=== PATIENT | male | born 1965 | race Caucasian/White ===

== ENCOUNTER → 2017-06-08 08:27 | Outpatient (CLI) | payer SELFPAY ==
[2017-06-08 10:03] LABS: Absolute Lymphocyte Count 3.63 X10^3/ul (0.83-4.51); Absolute Neutrophil Count 7.6 X10^3/uL (2.0-7.7); Basophil# 0.04 X10^3/uL; Basophil% 0.3 % (0-1); Eosinophil# 0.12 X10^3/uL; Hematocrit 45.4 % (40-54); Hemoglobin 15.3 g/dl (13.0-16.5); Lymphocyte # 3.63 X10^3/ul (4.0); Lymphocyte % 29.8 % (19-41); Mean Corp Hgb Conc 33.7 g/gl (32-36); Mean Corpuscular Hgb 33.5 pg (27.0-32.0); Mean Corpuscular Volume 99.3 fL (80-94); Mean Platelet Vol. 9.8 fl (6.2-12.0); Monocyte% 5.7 % (0-10); Neutrophil # 7.56 X10^3/uL (2.7-7.7); Neutrophil % 62.1 % (47-70); Platelet Count 163 K/mm3 (150-450); RBC Distribution Width CV 13.6 % (11.6-14.6); Red Blood Count 4.57 M/mm3 (4.6-6.2); White Blood Count 12.2 K/mm3 (4.4-11.0)
[2017-06-08 10:09] LABS: AST(SGOT) 43 U/L (15-37); Alanine Aminotransfer ALT/SGPT 47 U/L (16-61); Albumin, Serum 3.9 g/dL (3.2-5.0); Alkaline Phosphatase 105 U/L (45-117); Anion Gap 9 (5-15); BUN 14 mg/dL (7-18); BUN/Creat Ratio 15.6 RATIO (10-20); Calcium,Total 9.3 mg/dL (8.5-10.1); Chloride 94 mmol/L (98-107); EST Glomerular Filtration Rate 96 mL/min (>60); Est Glom Filt Rate - Afr Amer 116 mL/min (>60); Globulin 3.9 g/dL (2.2-4.2); Glucose 132 mg/dL (74-106); Potassium 4.4 mmol/L (3.5-5.1); Protein, Total 7.8 g/dL (6.4-8.2); Sodium Level 132 mmol/L (136-145)
[2017-06-08 10:11] LABS: POSITIVE COUNT NO; POSITIVE DIFFERENTIAL NO; POSITIVE MORPHOLOGY NO
== END ==
PROVIDERS: Family Provider Family Medicine; PCP Family Medicine; Visit Provider Family Medicine
DX: R74.8 Abnormal levels of other serum enzymes (principal)
CPT/HCPCS: 36415; 80053; 85025

== ENCOUNTER 2017-07-18 06:45 | Inpatient (IN) | payer SELFPAY ==
[2017-07-18 06:46] VITALS: BP 158/90; PULSE 120; RESP 15; TEMP 36.6; O2SAT 96; BMI 30.6
--- NOTE | 2017-07-18 07:06 | EKG12_ITS ---
Test Reason : ABD PAIN Blood Pressure : / mmHG Vent. Rate : 110 BPM Atrial Rate : 110 BPM P-R Int : 146 ms QRS Dur : 092 ms QT Int : 354 ms P-R-T Axes : 056 036 046 degrees QTc Int : 479 ms Sinus tachycardia Otherwise normal ECG Confirmed by BEULAH DELEON ([id number]), brands editor JOEL DELUCA ([id number] on 07/31/2017 5:57:12 PM Referred By: JESSICA Confirmed By:BEULAH DELEON
[2017-07-18] MEDS: Ondansetron 4 MG/2 ML Vial IV ×2 (07:22→17:15)
[2017-07-18] MEDS: 0.9% Normal Saline 1,000 ML 1000 ML IV ×2 (07:22→08:17)
[2017-07-18] MEDS: HYDROmorphone 1 MG/ML Syringe 0.5 MG IV (07:23)
[2017-07-18 07:28] LABS: Absolute Lymphocyte Count 2.31 X10^3/ul (0.83-4.51); Absolute Neutrophil Count 8.8 X10^3/uL (2.0-7.7); Basophil# 0.03 X10^3/uL; Basophil% 0.2 % (0-1); Eosinophil# 0.07 X10^3/uL; Eosinophils% 0.6 % (0-5); Hematocrit 47.8 % (40-54); Hemoglobin 16.8 g/dl (13.0-16.5); Lymphocyte # 2.31 X10^3/ul (4.0); Lymphocyte % 18.7 % (19-41); Mean Corp Hgb Conc 35.1 g/gl (32-36); Mean Corpuscular Hgb 34.3 pg (27.0-32.0); Mean Corpuscular Volume 97.6 fL (80-94); Mean Platelet Vol. 8.9 fl (6.2-12.0); Monocyte# 0.97 X10^3/uL; Monocyte% 7.9 % (0-10); Neutrophil # 8.84 X10^3/uL (2.7-7.7); Neutrophil % 71.6 % (47-70); Platelet Count 195 K/mm3 (150-450); RBC Distribution Width CV 13.4 % (11.6-14.6); RBC Distribution Width SD 47.2 fl (35.1-43.9); White Blood Count 12.3 K/mm3 (4.4-11.0)
[2017-07-18 07:31] LABS: POSITIVE COUNT NO; POSITIVE DIFFERENTIAL NO; POSITIVE MORPHOLOGY NO
[2017-07-18 07:36] LABS: AST(SGOT) 51 U/L (15-37); Alanine Aminotransfer ALT/SGPT 57 U/L (16-61); Albumin, Serum 4.2 g/dL (3.2-5.0); Alkaline Phosphatase 119 U/L (45-117); Anion Gap 14 (5-15); BUN 12 mg/dL (7-18); BUN/Creat Ratio 14.1 RATIO (10-20); Bilirubin, Direct 0.41 mg/dL (0.00-0.30); Calcium,Total 11.1 mg/dL (8.5-10.1); Chloride 92 mmol/L (98-107); Creatinine, Serum 0.85 mg/dL (0.70-1.30); EST Glomerular Filtration Rate 101 mL/min (>60); Est Glom Filt Rate - Afr Amer 122 mL/min (>60); Estimated Creatinine Clearance 101.71 ml/min; Globulin 4.4 g/dL (2.2-4.2); Glucose 152 mg/dL (74-106); Lipase 1230 U/L (73-393); Potassium 4.2 mmol/L (3.5-5.1); Protein, Total 8.6 g/dL (6.4-8.2); Sodium Level 134 mmol/L (136-145)
--- NOTE | 2017-07-18 08:09 | ED.DCSUM_ITS ---
- ER Visit Summary Date of Service: 07/18/17 Chief Complaint: Epigastric abdominal pain History of Present Illness: The patient is a 51 M reports a 3 day history of epigastric abdominal pain. He has had nausea and vomiting along with diarrhea. He denies fever or chills. Patient has drank alcohol in the past and states a few nights ago he did have a couple glasses of wine. He has never had pancreatitis. He denies any prior abdominal surgeries. Physical Examination: Vital signs are significant for heart rate of 120. Patient sitting upright in bed. He appears uncomfortable but is in no distress. Head neck examination reveals dry mucous membranes. Heart is tachycardic and regular. Lung sounds are clear. Abdomen is soft with focal tenderness in the epigastric area. He has active bowel sounds noted. There is no guarding or rebound. Test Results: EKG is sinus tach at 110 with no sign of acute ischemia. CBC was a white count 12.3 and hemoglobin concentrated at 16.8. Chemistry studies reveal a sodium of 134 and a glucose of 152. LFTs reveal a total bili of 1.20, direct bili of 0.41, AST 51. His lipase is elevated at 1230. Emergency Department Course and Treatment: Patient is been given IV fluid boluses along with Dilaudid and Zofran. On repeat evaluation he is resting more comfortably. He will be admitted for further treatment and care. Treatment Plan: [] Disposition: Admit Impression: Acute pancreatitis This note was generated with [employer] dictation software. It may contain incorrect words, spelling, and punctuation that were not noted in review of the chart prior to signing ED Disposition - Plan for ED Patient: Chief Complaint: Abd Pain Referrals: Zackary Wharton MD [Primary Care Provider] -
--- NOTE | 2017-07-18 08:16 | US_ITS ---
STUDY: ABDOMINAL ULTRASOUND - RIGHT UPPER QUADRANT REASON FOR VISIT: Male, 51 years old. 3 day history of epigastric pain. TECHNIQUE: Ultrasound evaluation of the right upper quadrant was performed with real-time and static harper-scale imaging. TECHNICAL QUALITY: Adequate. COMPARISON: Comparison is made with prior examination dated October 17, 2016. FINDINGS: Liver: The liver measures 18.0 cm. There is increased echogenicity consistent with fatty infiltration. The bile ducts are within normal limits. There is hepatic color flow. The direction of portal flow is hepatopetal. There is no demonstrated mass lesion. Gallbladder: Normal distended gallbladder. The gallbladder wall measures 2.9 mm. There is a negative sonographic Galaviz's sign. There is no pericholecystic fluid. There are no gallstones. Common Bile Duct (C.B.D.): The common bile duct measures 3.6 mm. Pancreas: Normal size of the head, body and tail of the pancreas. There is increased echogenicity of the pancreas. There is no demonstrated pancreatic mass or cyst. Right Kidney: Normal size of the right kidney. The right kidney measures 13.0 cm x 6.2 cm x 5.8 cm. Normal renal cortex. The right cortex measures 1.8 cm. There is no demonstrated renal mass or cyst. There is no right hydronephrosis. Findings suggestive of a 5 mm calculus in the right kidney. US/Gallbladder IMPRESSION: Fatty infiltration of the liver. Electronically Signed: Prabhakar Alexandra MD at 9:31 EDT Tel [phone], Service support ,
[2017-07-18] MEDS: HYDROmorphone 0.5 MG/0.5 ML SYRINGE IV (08:21)
[2017-07-18] MEDS: 0.9% Normal Saline 1,000 ML 150 ML IV ×3 (10:25→23:49)
[2017-07-18 10:29] VITALS: BP 140/84; PULSE 88; RESP 18; TEMP 36.6
[2017-07-18 10:46] VITALS: BMI 30.1
[2017-07-18 11:02] VITALS: BP 143/86; PULSE 110; RESP 20; TEMP 37.2; O2SAT 98
[2017-07-18] MEDS: Morphine 4 MG/ML Syringe IV ×3 (11:28→20:38)
[2017-07-18] MEDS: 0.9% NaCl Peripheral Flush Adult/Peds IV ×2 (11:30→15:47)
[2017-07-18 11:42] VITALS: BMI 30.1
[2017-07-18] MEDS: Tamsulosin HCl 0.4 MG Capsule PO (12:36)
[2017-07-18] MEDS: clonazePAM 0.5 MG Tablet PO (12:36)
[2017-07-18] MEDS: Enoxaparin 40 MG/0.4 ML Syringe SC (12:36)
--- NOTE | 2017-07-18 13:44 | PCM.HP.STD ---
Problem List (1) Pancreatitis Status: Acute (2) Hepatic steatosis Status: Chronic (3) Anxiety Status: Chronic (4) HTN (hypertension) Status: Chronic Qualifiers: History of Present Illness Date of Admission: 07/18/17 Chief Complaint: abdominal pain The patient is a 51 year old M presents with several days of epigastric abdominal pain. Also associated with nausea vomiting and diarrhea. Patient stated that couple days ago he had a couple glasses of wine but that was having some symptoms even before that. Patient states that he drinks alcohol infrequently. Patient presented to the hospital today as he felt that it would have been too busy over the weekend for this abdominal pain. In the emergency room, patient was found to have a lipase of 1230, patient's LFTs were slightly elevated as well. Patient had an ultrasound that showed no choledocholithiasis. Patient was admitted for further evaluation of his pancreatitis. Patient denies having any prior history of pancreatitis but he does endorse that he has had abdominal pain in the past which he is treated with alcohol. Patient does have a history of ascites any and anasarca which has improved greatly with diuretic therapy. Patient denies any history of cirrhosis though it has been documented that the patient to have alcoholic cirrhosis. Patient was seen in the hospital here in 2013 but has not seen any billet recorder in the interim. [] Past Medical History Past Medical History (Chronic Problems): Chronic Problems Hepatic steatosis (Chronic) Anxiety (Chronic) HTN (hypertension) (Chronic) Allergies No Known Allergies Allergy (Verified 07/18/17 06:46) Home Medications: Ambulatory Orders Medication Instructions Recorded Clonazepam [Klonopin] 0.5 mg PO DAILY PRN PRN 10/16/16 Furosemide [Lasix] 40 mg PO BIDLX 10/16/16 Multivitamin [Daily Multiple 1 tablet PO DAILY 10/16/16 Vitamin] Tamsulosin HCl [Flomax] 0.4 mg PO DAILY 10/16/16 Folic Acid 1 mg PO DAILY@0800 #30 tablet 10/22/16 Melatonin 3 mg PO QHS tablet 10/22/16 Spironolactone [Aldactone] 100 mg PO BID #60 tablet 10/22/16 Thiamine Hydrochloride [Vitamin B1] 100 mg PO DAILYCM #30 tablet 10/22/16 Surgical History: tonsillectomy Psychiatric History: Anxiety Smoking Status: Former smoker Tobacco Use: Non-smoker Alcohol: Occasional Drugs: None - *Family History Paternal History Items: Heart Disease Maternal History Items: No pertinent history Sibling History Items: No pertinent history Review of Systems Constitutional: Denies: Chills, Fever, Weight Change Eyes: Denies: Blurred vision, Double vision HEENT: Denies: Head Aches, Sinus Congestion, Sinus Drainage Cardiovascular: Denies: Chest Pain, Palpitations Respiratory: Denies: Cough, Shortness of breath at rest, Sputum production Gastrointestinal: Reports: Abdominal Pain, Diarrhea, Nausea, Vomiting Genitourinary: Denies: Dysuria Musculoskeletal: Denies: Joint Pain, Joint Tenderness Skin: Denies: Rash, Wounds Neurological: Denies: Numbness, Tingling, Focal weakness Psychiatric: Reports: Anxiety, Depression Hematologic/ Lymphatic: Denies: Easy Bruising, Easy Bleeding, Hx of blood clot VTE Information - Inpt Only VTE Present on Admission: No VTE Pharm Prophylaxis ordered?: Yes Patient Problems: Active and Suspected Problems Pancreatitis (Acute) - Physical Exam General: Alert, Cooperative, No apparent distress HEENT: Atraumatic, Normocephalic, - - No icterus Oral: Moist Mucosa, No Gingival or Mucosal Lesions/ Ulcerations Neck: No Nodes, Thyroid Normal Size and Texture Lungs: Clear to auscultation, Normal air movement, No rhonchi, No wheeze Cardiovascular: Regular rate, Regular Rhythm, Normal S1, Normal S2 Abdomen: Bowel Sounds Present, Soft, Non-Distended, No Hepato-splenomegaly, Tender - Right epigastric tenderness Extremities: No edema, No Calf Tenderness Skin: No rashes, - - Patient does have some rubor of his cheeks bilaterally. Psych/Mental Status: Normal Affect, Appropriate Vital Signs Temp Pulse Resp BP Pulse Ox 37.2 C 110 H 20 H 143/86 H 98 07/18/17 11:02 07/18/17 11:02 07/18/17 11:02 07/18/17 11:02 07/18/17 11:02 Oxygen Delivery Method Room Air Weight: 89.8 kg Body Mass Index (BMI) 30.1 Clinical Impression(s) from Imaging Studies Gallbladder Ultrasound 07/18/17 08:16 IMPRESSION: Fatty infiltration of the liver. Electronically Signed: Prabhakar Alexandra MD at 9:31 EDT Tel [phone], Service support , Assessment/Plan Active and Suspected Problems Pancreatitis (Acute) 1. Acute pancreatitis No obvious gallstones per the patient's history does not seem that could be alcohol induced though patient did endorse drinking alcohol this was occurring. Given patient's history is unclear if this was before after In the meantime, plan is for IV fluids, pain control and antiemetics. Depending on the patient's clinical course: If patient improves, would advance patient's diet and then encourage patient follow-up with gastroenterology. The patient declines and may need to consider reimaging, such as with a CAT scan or an MRCP. May need to consider also gastroenterology consultation. 2. Transaminitis LFTs are slightly elevated. No evidence of any choledocholithiasis that would cause this and clinically is no evidence of ascending cholangitis. Question of the patient actually was drinking more than just a couple drinks as he endorses. Previously his liver function tests had been pretty normal. 3. Hepatic steatosis Patient with noted fatty liver on ultrasound. Patient has had ascites as well as his lower extremity edema which is improved greatly since starting on diuretics I encouraged patient follow-up with gastroenterology to see if he does indeed have cirrhosis. Patient states that he has never had a liver biopsy. But given his past history of's ascites I would be very concerned that he may. 4. DVT prophylaxis with Lovenox Code Visit Inpatient E&M: 08859 Init Hosp L3
--- NOTE | 2017-07-18 13:52 | HP.PCM_ITS ---
Problem List (1) Pancreatitis Status: Acute (2) Hepatic steatosis Status: Chronic (3) Anxiety Status: Chronic (4) HTN (hypertension) Status: Chronic Qualifiers: History of Present Illness Date of Admission: 07/18/17 Chief Complaint: abdominal pain The patient is a 51 year old M presents with several days of epigastric abdominal pain. Also associated with nausea vomiting and diarrhea. Patient stated that couple days ago he had a couple glasses of wine but that was having some symptoms even before that. Patient states that he drinks alcohol infrequently. Patient presented to the hospital today as he felt that it would have been too busy over the weekend for this abdominal pain. In the emergency room, patient was found to have a lipase of 1230, patient's LFTs were slightly elevated as well. Patient had an ultrasound that showed no choledocholithiasis. Patient was admitted for further evaluation of his pancreatitis. Patient denies having any prior history of pancreatitis but he does endorse that he has had abdominal pain in the past which he is treated with alcohol. Patient does have a history of ascites any and anasarca which has improved greatly with diuretic therapy. Patient denies any history of cirrhosis though it has been documented that the patient to have alcoholic cirrhosis. 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 [] Past Medical History Past Medical History (Chronic Problems): Chronic Problems Hepatic steatosis (Chronic) Anxiety (Chronic) HTN (hypertension) (Chronic) Allergies No Known Allergies Allergy (Verified 07/18/17 06:46) Home Medications: Ambulatory Orders Medication Instructions Recorded Clonazepam [Klonopin] 0.5 mg PO DAILY PRN PRN 10/16/16 Furosemide [Lasix] 40 mg PO BIDLX 10/16/16 Multivitamin [Daily Multiple 1 tablet PO DAILY 10/16/16 Vitamin] Tamsulosin HCl [Flomax] 0.4 mg PO DAILY 10/16/16 Folic Acid 1 mg PO DAILY@0800 #30 tablet 10/22/16 Melatonin 3 mg PO QHS tablet 10/22/16 Spironolactone [Aldactone] 100 mg PO BID #60 tablet 10/22/16 Thiamine Hydrochloride [Vitamin B1] 100 mg PO DAILYCM #30 tablet 10/22/16 Surgical History: tonsillectomy Psychiatric History: Anxiety Smoking Status: Former smoker Tobacco Use: Non-smoker Alcohol: Occasional Drugs: None - *Family History Paternal History Items: Heart Disease Maternal History Items: No pertinent history Sibling History Items: No pertinent history Review of Systems Constitutional: Denies: Chills, Fever, Weight Change Eyes: Denies: Blurred vision, Double vision HEENT: Denies: Head Aches, Sinus Congestion, Sinus Drainage Cardiovascular: Denies: Chest Pain, Palpitations Respiratory: Denies: Cough, Shortness of breath at rest, Sputum production Gastrointestinal: Reports: Abdominal Pain, Diarrhea, Nausea, Vomiting Genitourinary: Denies: Dysuria Musculoskeletal: Denies: Joint Pain, Joint Tenderness Skin: Denies: Rash, Wounds Neurological: Denies: Numbness, Tingling, Focal weakness Psychiatric: Reports: Anxiety, Depression Hematologic/ Lymphatic: Denies: Easy Bruising, Easy Bleeding, Hx of blood clot VTE Information - Inpt Only VTE Present on Admission: No VTE Pharm Prophylaxis ordered?: Yes Patient Problems: Active and Suspected Problems Pancreatitis (Acute) - Physical Exam General: Alert, Cooperative, No apparent distress HEENT: Atraumatic, Normocephalic, - - No icterus Oral: Moist Mucosa, No Gingival or Mucosal Lesions/ Ulcerations Neck: No Nodes, Thyroid Normal Size and Texture Lungs: Clear to auscultation, Normal air movement, No rhonchi, No wheeze Cardiovascular: Regular rate, Regular Rhythm, Normal S1, Normal S2 Abdomen: Bowel Sounds Present, Soft, Non-Distended, No Hepato-splenomegaly, Tender - Right epigastric tenderness Extremities: No edema, No Calf Tenderness Skin: No rashes, - - Patient does have some rubor of his cheeks bilaterally. Psych/Mental Status: Normal Affect, Appropriate Vital Signs Temp Pulse Resp BP Pulse Ox 37.2 C 110 H 20 H 143/86 H 98 07/18/17 11:02 07/18/17 11:02 07/18/17 11:02 07/18/17 11:02 07/18/17 11:02 Oxygen Delivery Method Room Air Weight: 89.8 kg Body Mass Index (BMI) 30.1 Clinical Impression(s) from Imaging Studies Gallbladder Ultrasound 07/18/17 08:16 IMPRESSION: Fatty infiltration of the liver. Electronically Signed: Prabhakar Alexandra MD at 9:31 EDT Tel [phone], Service support , Assessment/Plan Active and Suspected Problems Pancreatitis (Acute) 1. Acute pancreatitis * No obvious gallstones per the patient's history does not seem that could be alcohol induced though patient did endorse drinking alcohol this was occurring. Given patient's history is unclear if this was before after * In the meantime, plan is for IV fluids, pain control and antiemetics. * Depending on the patient's clinical course: If patient improves, would advance patient's diet and then encourage patient follow-up with gastroenterology. The patient declines and may need to consider reimaging, such as with a CAT scan or an MRCP. May need to consider also gastroenterology consultation. 2. Transaminitis * LFTs are slightly elevated. No evidence of any choledocholithiasis that would cause this and clinically is no evidence of ascending cholangitis. * Question of the patient actually was drinking more than just a couple drinks as he endorses. * Previously his liver function tests had been pretty normal. 3. Hepatic steatosis * Patient with noted fatty liver on ultrasound. Patient has had ascites as well as his lower extremity edema which is improved greatly since starting on diuretics * I encouraged patient follow-up with gastroenterology to see if he does indeed have cirrhosis. Patient states that he has never had a liver biopsy. But given his past history of's ascites I would be very concerned that he may. 4. DVT prophylaxis with Lovenox Code Visit Inpatient E&M: 51866 Init Hosp L3
[2017-07-18 17:10] VITALS: BP 136/81; PULSE 108; RESP 18; TEMP 36.6; O2SAT 96
[2017-07-18] MEDS: Thiamine Hydrochloride 100 MG Tablet PO (17:12)
[2017-07-18 20:28] VITALS: BP 133/77; PULSE 101; RESP 24; TEMP 36.8; O2SAT 94
[2017-07-18 20:47] VITALS: PULSE 98; O2SAT 93
[2017-07-18] MEDS: MELATONIN 3 MG TABLET PO (21:42)
[2017-07-19 00:55] VITALS: BP 121/73; PULSE 100; RESP 20; TEMP 37; O2SAT 94
[2017-07-19] MEDS: Morphine 4 MG/ML Syringe IV ×5 (01:14→22:02)
[2017-07-19 05:42] VITALS: BP 123/81; PULSE 95; RESP 20; TEMP 37.1; O2SAT 98
[2017-07-19] MEDS: 0.9% Normal Saline 1,000 ML 150 ML IV ×3 (06:15→21:10)
[2017-07-19 06:23] LABS: Absolute Lymphocyte Count 3.14 X10^3/ul (0.83-4.51); Absolute Neutrophil Count 7.5 X10^3/uL (2.0-7.7); Basophil# 0.07 X10^3/uL; Basophil% 0.6 % (0-1); Eosinophil# 0.36 X10^3/uL; Hematocrit 44.7 % (40-54); Hemoglobin 15.3 g/dl (13.0-16.5); Lymphocyte # 3.14 X10^3/ul (4.0); Lymphocyte % 26.3 % (19-41); Mean Corp Hgb Conc 34.2 g/gl (32-36); Mean Corpuscular Hgb 34.5 pg (27.0-32.0); Mean Corpuscular Volume 100.9 fL (80-94); Mean Platelet Vol. 9.1 fl (6.2-12.0); Monocyte# 0.77 X10^3/uL; Monocyte% 6.4 % (0-10); Neutrophil # 7.49 X10^3/uL (2.7-7.7); Neutrophil % 62.8 % (47-70); Platelet Count 193 K/mm3 (150-450); RBC Distribution Width CV 13.3 % (11.6-14.6); RBC Distribution Width SD 48.6 fl (35.1-43.9); Red Blood Count 4.43 M/mm3 (4.6-6.2); White Blood Count 11.9 K/mm3 (4.4-11.0)
[2017-07-19 06:24] LABS: POSITIVE COUNT NO; POSITIVE DIFFERENTIAL NO; POSITIVE MORPHOLOGY NO
[2017-07-19 06:47] LABS: ALB/GLOB Ratio 0.9 RATIO (0.9-2.4); AST(SGOT) 41 U/L (15-37); Alanine Aminotransfer ALT/SGPT 44 U/L (16-61); Albumin, Serum 3.5 g/dL (3.2-5.0); Alkaline Phosphatase 104 U/L (45-117); Anion Gap 9 (5-15); BUN 10 mg/dL (7-18); BUN/Creat Ratio 13.5 RATIO (10-20); Calcium,Total 8.6 mg/dL (8.5-10.1); Chloride 98 mmol/L (98-107); Creatinine, Serum 0.74 mg/dL (0.70-1.30); EST Glomerular Filtration Rate 119 mL/min (>60); Est Glom Filt Rate - Afr Amer 144 mL/min (>60); Estimated Creatinine Clearance 116.82 ml/min; Globulin 4.1 g/dL (2.2-4.2); Glucose 111 mg/dL (74-106); Lipase 412 U/L (73-393); Potassium 3.6 mmol/L (3.5-5.1); Protein, Total 7.6 g/dL (6.4-8.2); Sodium Level 137 mmol/L (136-145)
[2017-07-19] MEDS: Folic Acid 1 MG Tablet PO (08:31)
[2017-07-19] MEDS: Enoxaparin 40 MG/0.4 ML Syringe SC (08:31)
[2017-07-19] MEDS: Tamsulosin HCl 0.4 MG Capsule PO (08:31)
--- NOTE | 2017-07-19 09:09 | SLEEP ---
Seen patient and educated him on the importance of screening/testing for sleep disordered breathing. He verbalized understanding and did not have any questions. I left patient with a brochure of information.
--- NOTE | 2017-07-19 10:08 | CASEMGMT ---
SW spoke w/pt in room, in regard to self pay status, mental health, alcohol use. Pt states he did meet w/someone from our financial dept this morning and completed a Medicaid application. Pt states lives alone, is not working, is fully independent w/all ADL's. Pt's PCP is Dr. Wharton and he gets scripts from [facility]. He normally just pays for his medications out of pocket as they are not expensive. Pt states he cares for his mother, and was caring for his father before he . Pt states their goal has been to keep his mother out of a care home, and so far he has been able to do so. SW gave pt information for [facility] assist, 211, prescription assist, [employer]. Pt states does not have issues w/transport or food. SW spoke w/pt about mental health, pt states his sister thinks he needs to speak w/someone, and his PCP has put him on medications. Pt said he had bad side effects from one and has been prescribed another, has been hesitant to try the new med. Pt states he is taking clonazepam and that is helping. SW gave pt a list of counseling agencies in the area, let him know that [facility] does have sliding scale fees since he does not yet have insurance. SW also asked pt about his alcohol consumption, pt denies that this is an issue. No further needs at this time, SW gave pt resources list of counseling agencies and resources for self pay status. SW remains available for any additional needs. RICCARDO Mosher, ANALYTICAL CLERK
[2017-07-19 10:31] VITALS: BP 126/83; PULSE 91; RESP 18; TEMP 37; O2SAT 94
[2017-07-19] MEDS: 0.9% NaCl Peripheral Flush Adult/Peds IV (10:40)
[2017-07-19] MEDS: Thiamine Hydrochloride 100 MG Tablet PO (11:21)
[2017-07-19] MEDS: Magnesium Hydroxide 30 ML UDC PO (14:24)
--- NOTE | 2017-07-19 15:12 | PN_ITS ---
Patient Problems: Active and Suspected Problems Pancreatitis (Acute) Subjective: had some worsening abdominal pain after eating. pt endorses that he ate more than he should. Vitals/I&O's: Vital Signs Temp Pulse Resp BP Pulse Ox 37.0 C 91 18 126/83 H 94 07/19/17 10:31 07/19/17 10:31 07/19/17 10:31 07/19/17 10:31 07/19/17 10:31 Oxygen Delivery Method Room Air Weight: 89.8 kg Body Mass Index (BMI) 30.1 Intake and Output for Last 24 Hours 07/17/17 07/18/17 07/19/17 23:59 23:59 23:59 Intake Total 2470 / 2470 993 / 993 Output Total 1375 / 1375 2400 / 2400 Balance 1095 / 1095 -1407 / -1407 General: Alert, Cooperative, No apparent distress HEENT: Atraumatic, Normocephalic Neck: No Nodes, Thyroid Normal Size and Texture Lungs: Clear to auscultation, Normal air movement, No rhonchi, No wheeze Cardiovascular: Regular rate, Regular Rhythm, Normal S1, Normal S2 Abdomen: Bowel Sounds Present, Soft, Non Tender, Non-Distended, No Hepato- splenomegaly Extremities: No edema, No Calf Tenderness Laboratory Results 07/19/17 05:34: WBC 11.9 H, RBC 4.43 L, Hgb 15.3, Hct 44.7, MCV 100.9 H, MCH 34.5 H, MCHC 34.2, RDW 13.3, RDW Differential 48.6 H, Plt Count 193, MPV 9.1, Immature Gran % (Auto) 0.900, Neut % (Auto) 62.8, Lymph % (Auto) 26.3, [place] % ( Auto) 6.4, Eos % (Auto) 3.0, Baso % (Auto) 0.6, Absolute Neuts (auto) 7.5, Absolute Lymphs (auto) 3.14, Total Counted Not Reportable 07/19/17 05:34: Sodium 137, Potassium 3.6, Chloride 98, Carbon Dioxide 30.0, Anion Gap 9, BUN 10, Creatinine 0.74, Estim Creat Clear Calc 116.82, Est GFR ( MDRD) Af Amer 144, Est GFR (MDRD) Non-Af 119, BUN/Creatinine Ratio 13.5, Glucose 111 H, Calcium 8.6, Total Bilirubin 1.10 H, AST 41 H, ALT 44, Alkaline Phosphatase 104, Total Protein 7.6, Albumin 3.5, Globulin 4.1, Albumin/Globulin Ratio 0.9, Lipase 412 H Current Medications Clonazepam (Klonopin) 0.5 mg PO DAILY PRN PRN PRN Reason: STRESS Last Admin: 07/18/17 12:36 Dose: 0.5 mg Enoxaparin Sodium (Lovenox) 40 mg SC DAILY@1000 [facility] Last Admin: 07/19/17 08:31 Dose: 40 mg Folic Acid (Folic Acid) 1 mg PO DAILY@0800 [facility] Last Admin: 07/19/17 08:31 Dose: 1 mg Sodium Chloride () 1,000 mls @ 150 mls/hr IV .[id number] [facility] Last Admin: 07/19/17 14:21 Dose: 150 mls/hr Magnesium Hydroxide (Milk Of Magnesia) 30 ml PO DAILY PRN PRN PRN Reason: Constipation Last Admin: 07/19/17 14:24 Dose: 30 ml Melatonin (Melatonin) 3 mg PO QHS [facility] Last Admin: 07/18/17 21:42 Dose: 3 mg Morphine Sulfate () 2 - 4 mg IV Q4H PRN PRN PRN Reason: MOD-SEVERE PAIN (4-10/10) Morphine Sulfate () 2 - 4 mg IV Q4H PRN PRN PRN Reason: MOD-SEVERE PAIN (4-10/10) Last Admin: 07/19/17 10:40 Dose: 4 mg Ondansetron HCl (Zofran) 4 mg IV Q8H PRN PRN PRN Reason: NAUSEA Last Admin: 07/18/17 17:15 Dose: 4 mg Sodium Chloride () 5 - 30 ml IV UD PRN PRN Reason: SALINE FLUSH Last Admin: 07/19/17 10:40 Dose: 10 ml Tamsulosin HCl (Flomax) 0.4 mg PO DAILY@0830 [facility] Last Admin: 07/19/17 08:31 Dose: 0.4 mg Thiamine HCl ([facility]itamin B1) [facility] Last Admin: 07/19/17 11:21 Dose: 100 mg Medical Necessity - Tobacco Use Smoking Status: Former smoker Tobacco Use: Non-smoker Assessment/Plan All Active Problems Pancreatitis (Acute) Hyponatremia (Acute) Severe sepsis with acute organ dysfunction (Acute) Hepatitis (Acute) Anasarca (Acute) Chest pain (Acute) 1. Acute pancreatitis * No obvious gallstones per the patient's history does not seem that could be alcohol induced though patient did endorse drinking alcohol this was occurring. Given patient's history is unclear if this was before after * In the meantime, plan is for IV fluids, pain control and antiemetics. * Depending on the patient's clinical course: If patient improves, would advance patient's diet and then encourage patient follow-up with gastroenterology. The patient declines and may need to consider reimaging, such as with a CAT scan or an MRCP. May need to consider also gastroenterology consultation. * worse after he ate than his abdominal pain did get worse. * Will continue with current management for now. * Continue with bland diet for now. 2. Transaminitis * LFTs are slightly elevated. No evidence of any choledocholithiasis that would cause this and clinically is no evidence of ascending cholangitis. * Question of the patient actually was drinking more than just a couple drinks as he endorses. * Previously his liver function tests had been pretty normal. * improved. 3. Hepatic steatosis * Patient with noted fatty liver on ultrasound. Patient has had ascites as well as his lower extremity edema which is improved greatly since starting on diuretics * I encouraged patient follow-up with gastroenterology to see if he does indeed have cirrhosis. Patient states that he has never had a liver biopsy. But given his past history of's ascites I would be very concerned that he may. 4. DVT prophylaxis with Lovenox Code Visit Inpatient E&M: 32154 Subs Hosp L2
[2017-07-19 15:30] VITALS: BP 142/90; PULSE 90; RESP 14; TEMP 36.8; O2SAT 95
[2017-07-19] MEDS: clonazePAM 0.5 MG Tablet PO (18:13)
[2017-07-19] MEDS: MELATONIN 3 MG TABLET PO (21:10)
[2017-07-19 21:30] VITALS: BP 124/80; PULSE 90; RESP 18; TEMP 37.1; O2SAT 96
[2017-07-20 03:30] VITALS: BP 123/71; PULSE 83; RESP 18; TEMP 36.8; O2SAT 93
[2017-07-20] MEDS: 0.9% Normal Saline 1,000 ML 150 ML IV (03:32)
[2017-07-20 06:08] LABS: Absolute Lymphocyte Count 2.48 X10^3/ul (0.83-4.51); Absolute Neutrophil Count 7.6 X10^3/uL (2.0-7.7); Basophil# 0.03 X10^3/uL; Basophil% 0.3 % (0-1); Eosinophil# 0.27 X10^3/uL; Eosinophils% 2.5 % (0-5); Hemoglobin 14.5 g/dl (13.0-16.5); Lymphocyte # 2.48 X10^3/ul (4.0); Lymphocyte % 22.6 % (19-41); Mean Corpuscular Hgb 33.2 pg (27.0-32.0); Mean Corpuscular Volume 100.7 fL (80-94); Monocyte# 0.59 X10^3/uL; Monocyte% 5.4 % (0-10); Neutrophil # 7.56 X10^3/uL (2.7-7.7); Neutrophil % 68.7 % (47-70); Platelet Count 167 K/mm3 (150-450); RBC Distribution Width CV 13.3 % (11.6-14.6); RBC Distribution Width SD 49.4 fl (35.1-43.9); Red Blood Count 4.37 M/mm3 (4.6-6.2)
[2017-07-20 06:29] LABS: ALB/GLOB Ratio 0.8 RATIO (0.9-2.4); AST(SGOT) 43 U/L (15-37); Alanine Aminotransfer ALT/SGPT 40 U/L (16-61); Albumin, Serum 3.3 g/dL (3.2-5.0); Alkaline Phosphatase 99 U/L (45-117); Anion Gap 9 (5-15); BUN 9 mg/dL (7-18); BUN/Creat Ratio 14.6 RATIO (10-20); Calcium,Total 8.9 mg/dL (8.5-10.1); Chloride 102 mmol/L (98-107); Creatinine, Serum 0.62 mg/dL (0.70-1.30); EST Glomerular Filtration Rate 147 mL/min (>60); Est Glom Filt Rate - Afr Amer 178 mL/min (>60); Estimated Creatinine Clearance 139.44 ml/min; Globulin 3.9 g/dL (2.2-4.2); Glucose 110 mg/dL (74-106); Lipase 233 U/L (73-393); Potassium 3.6 mmol/L (3.5-5.1); Protein, Total 7.2 g/dL (6.4-8.2); Sodium Level 137 mmol/L (136-145)
[2017-07-20 06:35] LABS: POSITIVE COUNT NO; POSITIVE DIFFERENTIAL NO; POSITIVE MORPHOLOGY NO
[2017-07-20 08:20] VITALS: BP 114/78; PULSE 87; RESP 16; TEMP 37; O2SAT 94
--- NOTE | 2017-07-20 08:56 | PCM.PN.HOSP ---
Patient Problems: Active and Suspected Problems Pancreatitis (Acute) Subjective: Feeling better. Tolerating diet. Vitals/I&O's: Vital Signs Temp Pulse Resp BP Pulse Ox 36.8 C 83 18 123/71 H 93 07/20/17 03:30 07/20/17 03:30 07/20/17 03:30 07/20/17 03:30 07/20/17 03:30 Oxygen Delivery Method Room Air Weight: 89.8 kg Body Mass Index (BMI) 30.1 Intake and Output for Last 24 Hours 07/18/17 07/19/17 07/20/17 23:59 23:59 23:59 Intake Total 2470 / 2470 4036 / 4036 1099 / 1099 Output Total 1375 / 1375 4150 / 4150 900 / 900 Balance 1095 / 1095 -114 / -114 199 / 199 General: Alert, Cooperative, No apparent distress HEENT: Atraumatic, Normocephalic Neck: No Nodes, Thyroid Normal Size and Texture Lungs: Clear to auscultation, Normal air movement, No rhonchi, No wheeze Cardiovascular: Regular rate, Regular Rhythm, Normal S1, Normal S2 Abdomen: Bowel Sounds Present, Soft, Non Tender, Non-Distended, No Hepato-splenomegaly Psych/Mental Status: Normal Affect, Appropriate Laboratory Results 07/20/17 05:45: WBC 11.0, RBC 4.37 L, Hgb 14.5, Hct 44.0, MCV 100.7 H, MCH 33.2 H, MCHC 33.0, RDW 13.3, RDW Differential 49.4 H, Plt Count 167, MPV 9.0, Immature Gran % (Auto) 0.500, Neut % (Auto) 68.7, Lymph % (Auto) 22.6, [place] % (Auto) 5.4, Eos % (Auto) 2.5, Baso % (Auto) 0.3, Absolute Neuts (auto) 7.6, Absolute Lymphs (auto) 2.48, Total Counted Not Reportable 07/20/17 05:45: Sodium 137, Potassium 3.6, Chloride 102, Carbon Dioxide 26.0, Anion Gap 9, BUN 9, Creatinine 0.62 L, Estim Creat Clear Calc 139.44, Est GFR (MDRD) Af Amer 178, Est GFR (MDRD) Non-Af 147, BUN/Creatinine Ratio 14.6, Glucose 110 H, Calcium 8.9, Total Bilirubin 1.10 H, AST 43 H, ALT 40, Alkaline Phosphatase 99, Total Protein 7.2, Albumin 3.3, Globulin 3.9, Albumin/Globulin Ratio 0.8 L, Lipase 233 Current Medications Clonazepam (Klonopin) 0.5 mg PO DAILY PRN PRN PRN Reason: STRESS Last Admin: 07/19/17 18:13 Dose: 0.5 mg Enoxaparin Sodium (Lovenox) 40 mg SC DAILY@1000 [facility] Last Admin: 07/19/17 08:31 Dose: 40 mg Folic Acid (Folic Acid) 1 mg PO DAILY@0800 [facility] Last Admin: 07/19/17 08:31 Dose: 1 mg Sodium Chloride () 1,000 mls @ 150 mls/hr IV .Q6H40M [facility] Last Admin: 07/20/17 03:32 Dose: 150 mls/hr Magnesium Hydroxide (Milk Of Magnesia) 30 ml PO DAILY PRN PRN PRN Reason: Constipation Last Admin: 07/19/17 14:24 Dose: 30 ml Melatonin (Melatonin) 3 mg PO QHS [facility] Last Admin: 07/19/17 21:10 Dose: 3 mg Morphine Sulfate () 2 - 4 mg IV Q4H PRN PRN PRN Reason: MOD-SEVERE PAIN (4-10/10) Morphine Sulfate () 2 - 4 mg IV Q4H PRN PRN PRN Reason: MOD-SEVERE PAIN (4-10/10) Last Admin: 07/19/17 22:02 Dose: 4 mg Ondansetron HCl (Zofran) 4 mg IV Q8H PRN PRN PRN Reason: NAUSEA Last Admin: 07/18/17 17:15 Dose: 4 mg Sodium Chloride () 5 - 30 ml IV UD PRN PRN Reason: SALINE FLUSH Last Admin: 07/19/17 10:40 Dose: 10 ml Tamsulosin HCl (Flomax) 0.4 mg PO DAILY@0830 [facility] Last Admin: 07/19/17 08:31 Dose: 0.4 mg [facility]) [facility] Last Admin: 07/19/17 11:21 Dose: 100 mg Medical Necessity - Tobacco Use Smoking Status: Former smoker Tobacco Use: Non-smoker Assessment/Plan All Active Problems Pancreatitis (Acute) Hyponatremia (Acute) Severe sepsis with acute organ dysfunction (Acute) Hepatitis (Acute) Anasarca (Acute) Chest pain (Acute) 1. Acute pancreatitis No obvious gallstones per the patient's history does not seem that could be alcohol induced though patient did endorse drinking alcohol this was occurring. Given patient's history is unclear if this was before after Improved today. Possibly could be related with the alcohol that he consumed in the days prior. I have advised patient to discontinue alcohol altogether. 2. Transaminitis LFTs are slightly elevated. No evidence of any choledocholithiasis that would cause this and clinically is no evidence of ascending cholangitis. Question of the patient actually was drinking more than just a couple drinks as he endorses. Previously his liver function tests had been pretty normal. improved, but bilirubin is slightly still elevated. Patient does have hepatic steatosis on ultrasound and previous imaging. I recommend patient follow-up with his foreign exchange clerk, Dr. Laughlin, for further evaluation and monitoring of his liver issues but also the fact that he has had pancreatitis as well. 3. Hepatic steatosis Patient with noted fatty liver on ultrasound. Patient has had ascites as well as his lower extremity edema which is improved greatly since starting on diuretics I encouraged patient follow-up with gastroenterology to see if he does indeed have cirrhosis. Patient states that he has never had a liver biopsy. But given his past history of's ascites I would be very concerned that he may. 4. DVT prophylaxis with Lovenox
--- NOTE | 2017-07-20 09:06 | PCM.DC ---
- Discharge Diagnoses Current Active Problems: Current Active and Chronic Problems Pancreatitis (Acute) You will use the following diet at home:: Cardiac, Fluid restricted (specify 2000 mls, 1500 mls) - 2 liters/day Your food should be the consistency of: Regular Your liquids should be the consistency of: Regular/Thin Discharge Activity: Return to Normal Activity Call your doctor if you observe: Fever of 101 or Higher, - - worsening abdominal pain. Allergies/Adverse Reactions: Allergies No Known Allergies Allergy (Verified 07/18/17 06:46) Medications to take at Discharge Clonazepam [Klonopin] 0.5 mg PO DAILY PRN PRN 10/16/16 Furosemide [Lasix] 40 mg PO BIDLX 10/16/16 Multivitamin [Daily Multiple Vitamin] 1 tablet PO DAILY 10/16/16 Tamsulosin HCl [Flomax] 0.4 mg PO DAILY 10/16/16 Folic Acid 1 mg PO DAILY@0800 #30 tablet 10/22/16 Melatonin 3 mg PO QHS tablet 10/22/16 Spironolactone [Aldactone] 100 mg PO BID #60 tablet 10/22/16 Thiamine Hydrochloride [Vitamin B1] 100 mg PO DAILYCM #30 tablet 10/22/16 Ondansetron HCl [Zofran] 8 mg PO TID PRN #15 tab 07/20/17 Oxycodone [Oxyir] 5 mg PO Q8H PRN 3 Days #6 tablet 07/20/17 The following prescriptions were given: Oxycodone [Oxyir] 5 mg PO Q8H PRN 3 Days #6 tablet PRN Reason: Severe Pain (6-10/10) Ondansetron HCl [Zofran] 8 mg PO TID PRN #15 tab PRN Reason: nausea vomiting. Primary Care Physician: Zackary Wharton MD [Primary Care Provider] - Within 2 Weeks Please Follow Up With: Tommie Laughlin MD When: 1-2 months Proposed Discharge Date: 07/20/17
[2017-07-20] MEDS: Tamsulosin HCl 0.4 MG Capsule PO (09:10)
[2017-07-20] MEDS: Folic Acid 1 MG Tablet PO (09:10)
[2017-07-20] MEDS: Thiamine Hydrochloride 100 MG Tablet PO (09:10)
--- NOTE | 2017-07-20 09:10 | DS.PCM_ITS ---
Discharge Date and Diagnosis - Problem List Patient Problems: Active and Suspected Problems Pancreatitis (Acute) Date of Admission: 07/18/17 Date of Discharge: 07/20/17 - Primary Discharge Diagnosis Active and Suspected Problems Pancreatitis (Acute) - Secondary Discharge Diagnosis Chronic Problems Hepatic steatosis (Chronic) Anxiety (Chronic) HTN (hypertension) (Chronic) Hospital Course and Treatment Imaging Results: Clinical Impression(s) from Imaging Studies Gallbladder Ultrasound 07/18/17 08:16 IMPRESSION: Fatty infiltration of the liver. Electronically Signed: Prabhakar Alexandra MD at 9:31 EDT Tel [phone], Service support , Operations: None Procedures: None Summary of Care Provided: The patient is a 51 year old M with abdominal pain and found to have pancreatitis. 1. Acute pancreatitis * No obvious gallstones per the patient's history does not seem that could be alcohol induced though patient did endorse drinking alcohol this was occurring. Given patient's history is unclear if this was before after * Improved today. Possibly could be related with the alcohol that he consumed in the days prior. I have advised patient to discontinue alcohol altogether. 2. Transaminitis * LFTs are slightly elevated. No evidence of any choledocholithiasis that would cause this and clinically is no evidence of ascending cholangitis. * Question of the patient actually was drinking more than just a couple drinks as he endorses. * Previously his liver function tests had been pretty normal. * improved, but bilirubin is slightly still elevated. Patient does have hepatic steatosis on ultrasound and previous imaging. * I recommend patient follow-up with his back winder, Dr. Laughlin, for further evaluation and monitoring of his liver issues but also the fact that he has had pancreatitis as well. 3. Hepatic steatosis * Patient with noted fatty liver on ultrasound. Patient has had ascites as well as his lower extremity edema which is improved greatly since starting on diuretics * I encouraged patient follow-up with gastroenterology to see if he does indeed have cirrhosis. Patient states that he has never had a liver biopsy. But given his past history of's ascites I would be very concerned that he may. [] Discharge Diet: Low fat/ Low Cholesterol, 8 Cup Fluid Restriciton, 2000 mg Sodium Diet Discharge Activity: Return to Normal Activity Call your doctor if you observe: Fever of 101 or Higher, - - worsening abdominal pain. Home Medications: Medications to take at Discharge Clonazepam [Klonopin] 0.5 mg PO DAILY PRN PRN 10/16/16 Furosemide [Lasix] 40 mg PO BIDLX 10/16/16 Multivitamin [Daily Multiple Vitamin] 1 tablet PO DAILY 10/16/16 Tamsulosin HCl [Flomax] 0.4 mg PO DAILY 10/16/16 Folic Acid 1 mg PO DAILY@0800 #30 tablet 10/22/16 Melatonin 3 mg PO QHS tablet 10/22/16 Spironolactone [Aldactone] 100 mg PO BID #60 tablet 10/22/16 Thiamine Hydrochloride [Vitamin B1] 100 mg PO DAILYCM #30 tablet 10/22/16 Ondansetron HCl [Zofran] 8 mg PO TID PRN #15 tab 07/20/17 Oxycodone [Oxyir] 5 mg PO Q8H PRN 3 Days #6 tablet 07/20/17 Following Prescrptions Were Given to Patient: Oxycodone [Oxyir] 5 mg PO Q8H PRN 3 Days #6 tablet PRN Reason: Severe Pain (6-10/10) Ondansetron HCl [Zofran] 8 mg PO TID PRN #15 tab PRN Reason: nausea vomiting. Primary Care Physician: Zackary Wharton MD [Primary Care Provider] - Within 2 Weeks Please Follow Up With: Tommie Laughlin MD When: 1-2 months Disposition: Home Minutes spent on discharge:: 32 Patient Condition:: Good Medical Necessity - Tobacco Use Smoking Status: Former smoker Tobacco Use: Non-smoker Meaningful Use Info Meaningful Use Diagnoses (Choose all that apply): None applicable Code Visit Inpatient E&M: 30126 Disch Hosp
[2017-07-20] MEDS: clonazePAM 0.5 MG Tablet PO (09:15)
== END 2017-07-20 10:30 | disposition home or self-care (01) | DRG 439 ==
LOC: ED 07:46 → MS2 10:13
PROVIDERS: Emergency Provider Emergency Medicine; Family Provider Family Medicine; PCP Family Medicine
DX: K85.90 Acute pancreatitis without necrosis or infection, unspecified (principal); E87.1 Hypo-osmolality and hyponatremia; K76.0 Fatty (change of) liver, not elsewhere classified; F41.9 Anxiety disorder, unspecified; I10 Essential (primary) hypertension; Z87.891 Personal history of nicotine dependence
CPT/HCPCS: 36415; 76705; 80048; 80053; 80076; 83690; 85025; 93005; 97802; 99285; 99406; J7030; A4216; J2405

== ENCOUNTER → 2017-10-30 10:42 | Outpatient (CLI) | payer SELFPAY ==
[2017-10-30 13:07] LABS: Hemoglobin A1c 5.6 % (4.2-6.3)
[2017-10-30 13:20] LABS: AST(SGOT) 44 U/L (15-37); Alanine Aminotransfer ALT/SGPT 46 U/L (16-61); Alkaline Phosphatase 114 U/L (45-117); Anion Gap 14 (5-15); BUN 12 mg/dL (7-18); BUN/Creat Ratio 13.7 RATIO (10-20); Calcium,Total 9.5 mg/dL (8.5-10.1); Chloride 95 mmol/L (98-107); Creatinine, Serum 0.87 mg/dL (0.70-1.30); EST Glomerular Filtration Rate 98 mL/min (>60); Est Glom Filt Rate - Afr Amer 119 mL/min (>60); Globulin 4.2 g/dL (2.2-4.2); Glucose 116 mg/dL (74-106); PSA,Total - Annual Screen 0.36 ng/mL (0.00-4.00); Potassium 4.1 mmol/L (3.5-5.1); Protein, Total 8.2 g/dL (6.4-8.2); Sodium Level 136 mmol/L (136-145)
[2017-10-30 13:28] LABS: Hematocrit 44.7 % (40-54); Hemoglobin 15.3 g/dl (13.0-16.5); Mean Corp Hgb Conc 34.2 g/gl (32-36); Mean Corpuscular Volume 96.3 fL (80-94); Platelet Count 219 K/mm3 (150-450); RBC Distribution Width CV 13.4 % (11.6-14.6); RBC Distribution Width SD 46.2 fl (35.1-43.9); Red Blood Count 4.64 M/mm3 (4.6-6.2)
[2017-10-30 13:29] LABS: Absolute Neutrophil Count 8.3 X10^3/uL (2.0-7.7); Basophil# 0.07 X10^3/uL; Basophil% 0.6 % (0-1); Eosinophil# 0.04 X10^3/uL; Eosinophils% 0.3 % (0-5); Lymphocyte % 22.4 % (19-41); Mean Platelet Vol. 9.7 fl (6.2-12.0); Monocyte# 0.82 X10^3/uL; Monocyte% 6.8 % (0-10); Neutrophil # 8.33 X10^3/uL (2.7-7.7); Neutrophil % 69.2 % (47-70); POSITIVE COUNT NO; POSITIVE DIFFERENTIAL NO; POSITIVE MORPHOLOGY NO
== END ==
PROVIDERS: Family Provider Family Medicine; PCP Family Medicine; Visit Provider Family Medicine
DX: I10 Essential (primary) hypertension (principal); E66.9 Obesity, unspecified; F52.21 Male erectile disorder; Z12.5 Encounter for screening for malignant neoplasm of prostate
CPT/HCPCS: 36415; 80053; 83036; 84153; 85025; G0103

== ENCOUNTER 2018-03-23 12:34 | Emergency (ER) | payer SELFPAY ==
[2018-03-23 12:35] VITALS: BP 180/87; PULSE 104; RESP 16; TEMP 36.6; O2SAT 98; BMI 29.5
--- NOTE | 2018-03-23 12:45 | RAD_ITS ---
STUDY: X-RAY - RIGHT HIP REASON FOR EXAM: Male, 52 years old. Injury following a fall. TECHNIQUE: 3 views of the hip. COMPARISON: None. FINDINGS: I suspect a subtle nondisplaced intertrochanteric fracture. Normal acetabulum. There is mild articular joint space narrowing. Normal visualized superior and inferior pubic rami and ischial tuberosities. Atherosclerotic calcification. RAD/HIP, UNI W/ Pelvis 2-3 Views IMPRESSION: I suspect a subtle nondisplaced right intertrochanteric fracture. Electronically Signed: Prabhakar Alexandra MD at 13:21 EST , Service support ,
[2018-03-23] MEDS: Naproxen 500 MG Tablet PO (12:49)
--- NOTE | 2018-03-23 13:07 | ED.VISSUMM ---
- ER Visit Summary Date of Service: 03/23/18 Chief Complaint: Right hip/thigh pain status post fall History of Present Illness: The patient is a 52 M who states he was shoveling his driveway. He reports he slipped on a patch of ice. He landed on his right buttocks/proximal lateral right thigh. He localizes pain to the right greater trochanteric region. He states he brought himself to the car. Triage notes he was able to stand. Patient admits he was able to stand. He reports pain. Reports pain with movement. He denies head trauma. He denies loss of conscious. Denies nausea vomiting. He denies neck pain. He denies paresthesia, anesthesia or weakness in his extremities. He denies cardiac or respiratory symptoms. Physical Examination: Vital signs noted and remarkable for an elevated blood pressure of 180/87. He appears anxious. Head is atraumatic normocephalic. Pupils are equal round reactive. Extraocular muscles are intact. TMs are pearly white with landmarks noted. Nares patent with no drainage. Posterior pharynx without erythema or exudate. Uvula is midline. There is no dysphonia or dysphasia. Trachea is midline. There is no stridor with auscultation of the neck. There is no cervical spine tenderness. C-spine was cleared per Nexus criteria. Heart is regular without murmur, gallop or rub. S1 and S2 are normal. Lungs are clear to auscultation with good movement of air bilaterally. There is no pain palpation of the right or left iliac crest. There is no pain the patient over the left ischial tuberosity. Minimal discomfort over the right ischial tuberosity. There is no pain the patient over the pubic symphysis. There is pain to palpation over the greater trochanteric region. Passive and active extension causes him discomfort. Logrolling causes no discomfort. There is no pain abrasion over the patella. There is no palpable effusion in the patella is not ballotable. There is no joint line tenderness and there is no laxity with varus valgus stress testing. Ayden's test and modified Evelyn test are negative. DP and PT pulses are diminished. There is mild stigmata of peripheral arterial disease noted. Test Results: Three-view x-ray of the hip was obtained and interpreted by me as negative for fracture, subluxation or dislocation. There is evidence of atherosclerotic disease. Emergency Department Course and Treatment: NSAID since there is no conjugation and x-ray Treatment Plan: Discharged home with prescription for NSAID Disposition: Discharged home in stable condition Impression: 1. Injury secondary to fall initial encounter 2. Contusion right hip initial encounter 3. History of hypertension 4. Atherosclerotic disease This note was generated with [employer] dictation software. It may contain incorrect words, spelling, and punctuation that were not noted in review of the chart prior to signing ED Disposition - Plan for ED Patient: Disposition: Home or Assisted Living Instructions: ED Contusion Hip Prescriptions: Naproxen [Naprosyn] 500 mg PO BID #14 tablet Referrals: Zackary Wharton MD [Primary Care Provider] - 1 Week if not improving Additional Instructions: You may feel sore in more places and you presently do and you may have pain for several days. Apply ice 6-8 times a day for 20-30 minutes. Your prescription was electronically transmitted to [facility] your pharmacy of choice.
[2018-03-23 13:20] VITALS: BP 178/85; PULSE 95; RESP 14; O2SAT 98
== END 2018-03-23 13:33 | disposition home or self-care (01) ==
PROVIDERS: Emergency Provider Emergency Medicine; Family Provider Family Medicine; PCP Family Medicine
DX: S70.01XA Contusion of right hip, initial encounter (principal); S70.11XA Contusion of right thigh, initial encounter; W00.0XXA Fall on same level due to ice and snow, initial encounter; Y93.H1 Activity, digging, shoveling and raking; Y92.008 Other place in unspecified non-institutional (private) residence as the place of occurrence of the external cause; I25.10 Atherosclerotic heart disease of native coronary artery without angina pectoris; I10 Essential (primary) hypertension; N40.0 Benign prostatic hyperplasia without lower urinary tract symptoms; Z79.899 Other long term (current) drug therapy; Z72.0 Tobacco use
CPT/HCPCS: 73502; 99282

== ENCOUNTER → 2018-07-30 08:54 | Outpatient (CLI) | payer SELFPAY ==
[2018-07-30 10:20] LABS: Absolute Lymphocyte Count 2.55 X10^3/ul (0.83-4.51); Absolute Neutrophil Count 9.4 X10^3/uL (2.0-7.7); Basophil# 0.06 X10^3/uL; Basophil% 0.4 % (0-1); Eosinophil# 0.13 X10^3/uL; Hematocrit 45.8 % (40-54); Hemoglobin 15.8 g/dl (13.0-16.5); Lymphocyte # 2.55 X10^3/ul (4.0); Mean Corp Hgb Conc 34.5 g/gl (32-36); Mean Corpuscular Hgb 34.3 pg (27.0-32.0); Mean Corpuscular Volume 99.6 fL (80-94); Monocyte# 1.04 X10^3/uL; Monocyte% 7.7 % (0-10); Neutrophil # 9.37 X10^3/uL (2.7-7.7); Neutrophil % 69.8 % (47-70); Platelet Count 217 K/mm3 (150-450); RBC Distribution Width CV 13.9 % (11.6-14.6); White Blood Count 13.4 K/mm3 (4.4-11.0)
[2018-07-30 10:27] LABS: ALB/GLOB Ratio 0.8 RATIO (0.9-2.4); AST(SGOT) 63 U/L (15-37); Alanine Aminotransfer ALT/SGPT 70 U/L (16-61); Albumin, Serum 3.7 g/dL (3.2-5.0); Alkaline Phosphatase 104 U/L (45-117); Anion Gap 11 (5-15); BUN 20 mg/dL (7-18); BUN/Creat Ratio 23.8 RATIO (10-20); Chloride 99 mmol/L (98-107); Creatinine, Serum 0.84 mg/dL (0.70-1.30); EST Glomerular Filtration Rate 102 mL/min (>60); Est Glom Filt Rate - Afr Amer 124 mL/min (>60); Globulin 4.4 g/dL (2.2-4.2); Glucose 131 mg/dL (74-106); Potassium 3.6 mmol/L (3.5-5.1); Protein, Total 8.1 g/dL (6.4-8.2); Sodium Level 139 mmol/L (136-145)
[2018-07-30 10:29] LABS: Hemoglobin A1c 5.5 % (4.2-6.3)
[2018-07-30 10:31] LABS: POSITIVE COUNT YES; POSITIVE DIFFERENTIAL NO; POSITIVE MORPHOLOGY YES
[2018-07-31 09:11] LABS: Pathologist Review Reviewed
== END ==
PROVIDERS: Family Provider Family Medicine; PCP Family Medicine; Visit Provider Family Medicine
DX: K76.0 Fatty (change of) liver, not elsewhere classified (principal); I10 Essential (primary) hypertension; R73.03 Prediabetes
CPT/HCPCS: 36415; 80053; 83036; 85025

== ENCOUNTER → 2019-02-04 09:41 | Outpatient (CLI) | payer SELFPAY ==
[2019-02-04 12:45] LABS: Anion Gap 10 (5-15); BUN 11 mg/dL (7-18); BUN/Creat Ratio 11.1 RATIO (10-20); Chloride 98 mmol/L (98-107); Cholesterol 230 mg/dL (200); Creatinine, Serum 0.99 mg/dL (0.70-1.30); EST Glomerular Filtration Rate 84 mL/min (>60); Est Glom Filt Rate - Afr Amer 102 mL/min (>60); Glucose 138 mg/dL (74-106); High Density Lipoprotein 68 mg/dL; Potassium 3.9 mmol/L (3.5-5.1); Sodium Level 132 mmol/L (136-145); Triglycerides 190 mg/dL; Very Low Density Lipoprotein 38 mg/dL (5-40)
== END ==
PROVIDERS: Family Provider Family Medicine; PCP Family Medicine; Visit Provider Family Medicine
DX: R73.03 Prediabetes (principal)
CPT/HCPCS: 36415; 80048; 80061

== ENCOUNTER → 2019-05-16 | Outpatient (CLI) | payer SELFPAY ==
--- NOTE | 2019-05-16 09:52 | CYSPIN_PTH ---
PATIENT: MAGGI TOVAR LOC: [facility] U#:[id number] AGE/SX: 53/M ROOM: RE05/16/[address]: Dr. Jose Soliman MD : [id number] BED: DIS: 05/16/2019 SPEC #: [id number] RECD: 05/17/19 07:55 STATUS: VINAY RICHAR #: [id number] SANDHYA: 05/16/19 09:[address]: Jose Soliman DEPT: CYTOLOGY RECD BY: Jerson Hall ENTERED: 05/17/19 07:56 SP TYPE: CYSPIN FL OTHR DR: Dr. 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 See comment. AM:afua 05/20/19 COMMENT The specimen primarily contains squamous epithelial cells. Clinical correlation is suggested. CYTOLOGY STUDY Slides are reviewed. CYTOLOGY GROSS Received is 60 ml of light yellow cloudy fluid labeled with the patient's name and and designated per the requisition as urine. Submitted for cytology preparation. / faua 05/17/19 TC:5 CPT: 46943
[2019-05-16 17:07] LABS: Cytology, Body Fluid / CSF SEE PATHOLOGY REPORT
== END | disposition home or self-care (01) ==
LOC: LABSPEC 16:16
PROVIDERS: PCP Family Medicine; Referring Provider Urology; Visit Provider Urology
DX: C67.3 Malignant neoplasm of anterior wall of bladder (principal)
CPT/HCPCS: 88108; 88313